=== PATIENT | male | born 1985 | race Caucasian/White ===

== ENCOUNTER 2017-05-22 16:47 | Inpatient (IN) | payer BC, OTHER ==
[~2017-05-22] VITALS: Ht 182.9 cm; Wt 103.6 kg
[2017-05-22 16:53] VITALS: Ht 182.9 cm; Wt 103.6 kg
[2017-05-22] MEDS ORDERED: BARIUM SULF 2% 450 ML BTL (BERRY SMOOTHIE) PO STA (19:26)
[2017-05-22] MEDS ORDERED: ONDANSETRON 4 MG INJ IV STA ×2 (19:26→21:06)
[2017-05-22] MEDS ORDERED: HYDROmorphONE 1 MG/ML SYG IV STA ×2 (19:26→21:06)
[2017-05-22] MEDS ORDERED: SOD CHLORIDE 0.9% 1,000 ML IV STA (19:26)
[2017-05-22 20:04] LABS: BASOPHILS % 0.2 % (0.0-2.0); EOSINOPHILS % 0.3 % (0.0-7.0); HEMATOCRIT 34.2 % (42.0-52.0); HEMOGLOBIN 12.5 g/dl (14.0-18.0); LYMPHOCYTES % 8.8 % (15.0-51.0); MEAN CORPUSCULAR HEMOGLOBIN 29.7 pg (29.0-33.0); MEAN CORPUSCULAR HGB CONC 36.5 g/dl (32.0-37.0); MEAN CORPUSCULAR VOLUME 81.2 fl (82.0-101.0); MONOCYTE # 1.1 10^3/ul (0.3-0.9); MONOCYTES % 9.5 % (0.0-11.0); NEUTROPHILS % 80.9 % (39.0-77.0); PLATELET COUNT 238 10^3/UL (140-415); RED BLOOD COUNT 4.21 10^6/ul (4.70-6.10); RED CELL DISTRIBUTION WIDTH 12.4 % (11.5-14.5); WHITE BLOOD COUNT 11.5 10^3/ul (4.8-10.8)
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
[2017-05-22 20:30] LABS: ALBUMIN 4.5 g/dl (3.3-4.9); ALBUMIN/GLOBULIN RATIO 1.25; CALCIUM 9.4 mg/dl (8.4-10.2); CREATININE 0.96 mg/dl (0.61-1.24); TOTAL PROTEIN 8.1 g/dl (6.1-8.1)
[2017-05-22] MEDS ORDERED: IBUPROFEN 800 MG TAB PO ONE (20:30)
[2017-05-22 20:37] LABS: ADD UMIC YES; UR ASCORBIC ACID NEGATIVE (NEGATIVE); UR BILIRUBIN (Dip) NEGATIVE (NEGATIVE); UR BLOOD (Dip) 1+ mg/dL (NEGATIVE); UR CLARITY CLEAR (CLEAR); UR COLOR AMBER (YELLOW); UR GLUCOSE (Dip) NEGATIVE (NEGATIVE); UR KETONES (Dip) 2+ mg/dL (NEGATIVE); UR LEUKOCYTE ESTERASE (Dip) TRACE Leu/ul (NEGATIVE); UR MUCUS FEW /HPF (NONE SEEN); UR NITRITE (Dip) NEGATIVE (NEGATIVE); UR RBC 1 /HPF (0-5); UR SPECIFIC GRAVITY (Dip) 1.019 (1.003-1.030); UR TOTAL PROTEIN (Dip) NEGATIVE (NEGATIVE); UR UROBILINOGEN (Dip) 1+ mg/dL (NEGATIVE)
[2017-05-22] MEDS ORDERED: IOHEXOL 300MG/ML 150 ML BTL ONE (21:08)
[2017-05-22] MEDS ORDERED: SOD CHLORIDE 0.9% 100 ML ONE (21:08)
[2017-05-22] MEDS ORDERED: LORAZEPAM 2 MG INJ IV ONE (21:30)
--- NOTE | 2017-05-22 22:25 | RADRPT ---
PROCEDURE: CT Abdomen and pelvis with contrast. CLINICAL INDICATION: Abdominal pain. TECHNIQUE: CT scan of the abdomen and pelvis with contrast was performed on a multi-detector high -resolution CT scanner. The patient was scanned following the uncomplicated administration of 100 c c of Omnipaque 300 intravenous contrast. Coronal and sagittal reformatted images were obtained from the axial source images. Images were reviewed on a high-resolution PACS workstation. One or more of the following dose reduction techniques were used: - Automated exposure control. - Adjustment of the mA and/or kV according to patient size. - Use of iterative reconstruction technique. Exam CTD/vol = 18.37 mGy. Total exam DLP = 1204.42 mGy-cm. COMPARISON: None. FINDINGS: Evaluation of the lung bases demonstrates scattered patchy airspace opacities within the left lung b ase. There is dilatation of the distal esophagus with mild wall thickening. Abdomen: The liver is normal in size. There is no focal mass or dilatation of the biliary tree. T he gallbladder is not distended. Multiple gallstones are identified. The spleen, pancreas and bila teral adrenal glands are within normal limits. Bilateral kidneys are normal in size with symmetric enhancement. There is no focal mass, hydronephrosis or hydroureter. There is no retroperitoneal ad enopathy. The abdominal aorta is of normal caliber. There are small midline ventral, right and left lateral abdominal wall hernias containing fat. The patient is status post gastric banding. There are an anastomotic sutures within the ascending and d escending colon. There is no bowel obstruction or free air. The appendix is absent. There is no d iverticulosis or diverticulitis. There is no ascites. Pelvis: The bladder is unremarkable. The prostate and seminal vesicles are within normal limits. There is no significant pelvic adenopathy or free fluid. Evaluation of the osseous structures demonstrates no suspicious lytic or blastic lesion. IMPRESSION: Status post gastric banding. There is dilatation of the distal esophagus with mild wall thickening. Scattered patchy airspace opacities within the left lung base. Small midline ventral, right and left lateral abdominal wall hernias containing fat. Cholelithiasis. .Jan Leger MD, Date Time Electronically viewed and signed by .Jan Leger MD, MD on 05/22/2017 22:25 .T/
--- NOTE | 2017-05-22 22:28 | RADRPT ---
PROCEDURE: Abdominal ultrasound, limited. CLINICAL INDICATION: Abdominal pain. TECHNIQUE: Multiple real-time images were acquired of the patient's right upper abdomen utilizing a high resolution transducer. COMPARISON: None FINDINGS: The liver demonstrates increased echogenicity and size measuring 21.5 cm. There is no focal mass or intrahepatic biliary ductal dilatation. The portal vein is patent. The gallbladder is not distend ed. Echogenic gallstones and sludge are identified. There is no pericholecystic fluid or gallbladd er wall thickening. The common bile duct measures 4.0 mm in maximal dimension. The pancreas is obs cured by overlying bowel gas. No free fluid is identified. The right kidney is normal size and echogenicity measuring 12.2 x 5.6 x 7.1 cm. There is no focal r enal mass or echogenic calculus identified. There is no obstructive uropathy. IMPRESSION: Cholelithiasis and gallbladder sludge without ultrasound evidence of cholecystitis. Enlarged liver with fatty infiltration. Pancreas obscured by overlying bowel gas. .Jan Leger MD, Date Time Electronically viewed and signed by .Jan Leger MD, MD on 05/22/2017 22:27 .T/
[2017-05-22] MEDS ORDERED: AZITHROMYCIN 500MG/NS (PMX) 250 ML IV STA (23:29)
[2017-05-22] MEDS ORDERED: CEFTRIAXONE 1 GM/50 ML (PMX) 50 ML IVPB STA (23:29)
[2017-05-23] MEDS ORDERED: ACETAMINOPHEN 325 MG TAB PO PRN
[2017-05-23] MEDS: SOD CHLORIDE 0.9% 1,000 ML IV SCH ×2 (00:24→08:55)
[2017-05-23 01:37] VITALS: PULSE 80; TEMP 97.9
[2017-05-23 02:33] VITALS: BP 114/63; RESP 18
[2017-05-23] MEDS ORDERED: ONDANSETRON 4 MG INJ IV PRN ×2 (03:00)
[2017-05-23] MEDS: morphine 4 MG/ML VIAL IV PRN ×2 (04:56→08:47)
[2017-05-23] MEDS ORDERED: KETOROLAC 30 MG INJ IV PRN (07:00)
[2017-05-23 07:21] VITALS: BP 119/73; RESP 20
[2017-05-23] MEDS ORDERED: LEVOFLOXACIN 500MG/D5W (PMX) 100 ML IVPB SCH (07:30)
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
[2017-05-23] MEDS ORDERED: HYDROmorphONE 1 MG/ML SYG IV STA (09:44)
--- NOTE | 2017-05-23 09:44 | PN ---
Date/Time of Note Date/Time of Note DATE: 05/23/17 TIME: 09:43 Assessment/Plan VTE Prophylaxis VTE Prophylaxis Intervention: SCD's Lines/Catheters [facility] Saline [facility] Assessment/Plan Assessment/Plan This is a 31-year-old male who presents to us with left-sided pleuritic chest pain, abdominal pain and dysphagia, clinical jaundice who was recently discharged from [facility] yesterday when he had presented for jaundice and underwent EGD colonoscopy. 1. Epigastric abdominal pain and dysphagia -Possibly related to LAP-BAND dysfunction vs cholelithiasis. will notify Dr. Jacobsen about patient's admission. Of note however patient does seem to have drug seeking behavior, specifically asking for a 2 mg Dilaudid. - Patient having pain, MRCP pending, will give 1 dose of Dilaudid, increase PPI to twice daily. -Is also requesting for diet, if he does not need to be n.p.o. for MRCP, will start clear liquid diet. 2. Sepsis, as evidenced by fever and tachypnea: Likely secondary to left lower lung pneumonia VS less likely ileitis given colonoscopy findings from 2 days ago -IV antibiotic, IV hydration, supportive care -Follow-up culture results 3. Jaundice with hyperbilirubinemia -Direct hyperbilirubinemia noted / follow-up MRCP findings to rule out choledocholithiasis / GI consult with Dr. Saldana /trend bilirubin levels. 4. Hypokalemia -Replete 5. Remote hx of Lap band placement Further interventions per clinical course. Subjective 24 Hr Interval Summary Free Text/Dictation c/o of L sided pleuritic chest pain as well as lower abd pain, want to know treatment plan Wants 2 mg of dilaudid every 3 hrs , refuses oral meds, wants only IV Exam/Review of Systems Vital Signs Vitals Vital Signs Date Time Temp Pulse Resp B/P Pulse Ox O2 Delivery O2 Flow Rate FiO2 05/23/17 07:21 98.9 79 20 119/73 96 05/23/17 01:37 Room Air Intake and Output 05/22/17 05/22/17 05/23/17 15:00 23:00 07:00 Intake Total 200 ml Balance 200 ml Exam Constitutional: alert, oriented, anxious Head: atraumatic, normocephalic Neck: non-tender, supple Respiratory: clear to auscultation Cardiovascular: regular rate and rhythm Gastrointestinal: S/ NT / ND / +BS Extremities: no edema, good radial pulses Results Result Diagram: 05/22/17 1950 05/22/171949 Results 24 hrs Laboratory Tests Test 05/22/17 19:50 White Blood Count 11.5 H Red Blood Count 4.21 L Hemoglobin 12.5 L Hematocrit 34.2 L Mean Corpuscular Volume 81.2 L Mean Corpuscular Hemoglobin 29.7 Mean Corpuscular Hemoglobin Concent 36.5 Red Cell Distribution Width 12.4 Platelet Count 238 Mean Platelet Volume 9.0 Neutrophils % 80.9 H Lymphocytes % 8.8 L Monocytes % 9.5 Eosinophils % 0.3 Basophils % 0.2 Nucleated Red Blood Cells % 0.0 Neutrophils # (Manual) 9.3 H Lymphocytes # 1.0 Monocytes # 1.1 H Eosinophils # 0.0 Basophils # 0.0 Nucleated Red Blood Cells # 0.0 Urine Color ANDREW Urine Clarity CLEAR Urine pH 5.0 Urine Specific [place] 1.019 Urine Ketones 2+ H Urine Nitrite NEGATIVE Urine Bilirubin NEGATIVE Urine Urobilinogen 1+ H Urine Leukocyte Esterase TRACE A Urine Microscopic RBC 1 Urine Microscopic WBC 2 Urine Mucus FEW A Urine Hemoglobin 1+ H Urine Glucose NEGATIVE Urine Total Protein NEGATIVE Sodium Level 140 Potassium Level 3.0 L Chloride Level 97 Carbon Dioxide Level 30 Anion Gap 16 Blood Urea Nitrogen 4 L Creatinine 0.96 Glucose Level 95 Calcium Level 9.4 Total Bilirubin 8.0 H Direct Bilirubin 0.00 Indirect Bilirubin 8.0 H Aspartate Amino Transf (AST/SGOT) 25 Alanine Aminotransferase (ALT/SGPT) 45 Alkaline Phosphatase 76 Total Protein 8.1 Albumin 4.5 Globulin 3.60 H Albumin/Globulin Ratio 1.25 Lipase 45 Medications Medications Current Medications Sodium Chloride (NS) 1,000 ml @ 80 mls/hr [id number] IV Last administered on 08:55; Admin Dose 80 MLS/HR; Start 05/22/17 at 23:41; Stop 05/23/17 at 12:10 Morphine Sulfate (morphine) 4 mg Q4H PRN IV PAIN Last administered on 05/23/17 08:47; Admin Dose 4 MG; Start 05/23/17 at 03:00 Ondansetron HCl (Zofran Inj) 4 mg Q6H PRN IV NAUSEA AND/OR VOMITING; Start 05/23 at 03:00 Ketorolac Tromethamine 30 mg 30 mg Q6H PRN IV PAIN; Start 05/23/17 at 07:00; Stop 05/26/17 at 06:59 Levofloxacin/ Dextrose (Levaquin 500mg/ D5W 100 ml (Pmx)) 100 ml @ 100 mls/hr Q24H IVPB Last administered on 05/23/17t 08:59; Admin Dose 100 MLS/HR; Start 05/23/17 at 07:30 Pantoprazole (Protonix Iv) 40 mg DAILY@06 IV ; Start 05/24/17 at 06:00 SREEDHAR DSOUZA May 23, 2017 09:44
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
[2017-05-23] MEDS ORDERED: POTASSIUM CHLORIDE 250 ML IVPB SCH (11:00)
[2017-05-23] MEDS ORDERED: FAMOTIDINE 20 MG INJ IV SCH (11:00)
[2017-05-23 11:06] LABS: ALBUMIN 3.9 g/dl (3.3-4.9); ALBUMIN/GLOBULIN RATIO 1.3; BILIRUBIN,INDIRECT 6.6 mg/dl (0-1.1); BILIRUBIN,TOTAL 6.6 mg/dl (0.2-1.3); CALCIUM 8.9 mg/dl (8.4-10.2); CREATININE 0.74 mg/dl (0.61-1.24); POTASSIUM 3.1 mmol/L (3.5-5.1); TOTAL PROTEIN 6.9 g/dl (6.1-8.1)
[2017-05-23 11:11] LABS: BASOPHILS % 0.3 % (0.0-2.0); EOSINOPHILS # 0.2 10^3/ul (0.0-0.5); EOSINOPHILS % 2.5 % (0.0-7.0); HEMATOCRIT 31.5 % (42.0-52.0); HEMOGLOBIN 11.8 g/dl (14.0-18.0); LYMPHOCYTES # 0.7 10^3/ul (0.8-2.9); LYMPHOCYTES % 8.1 % (15.0-51.0); MEAN CORPUSCULAR HEMOGLOBIN 30.6 pg (29.0-33.0); MEAN CORPUSCULAR HGB CONC 37.5 g/dl (32.0-37.0); MEAN CORPUSCULAR VOLUME 81.6 fl (82.0-101.0); MEAN PLATELET VOLUME 9.7 fl (7.4-10.4); NEUTROPHILS % 77.7 % (39.0-77.0); PLATELET COUNT 216 10^3/UL (140-415); RED BLOOD COUNT 3.86 10^6/ul (4.70-6.10); RED CELL DISTRIBUTION WIDTH 12.1 % (11.5-14.5); WHITE BLOOD COUNT 9.2 10^3/ul (4.8-10.8)
--- NOTE | 2017-05-23 17:13 | QN ---
Documentation Comment DISCHARGE SUMMARY: Patient eloped and returned to ER to be readmitted. SREEDHAR DSOUZA. May 23, 2017 17:13
--- NOTE | 2017-05-23 17:24 | HP ---
Date/Time of Note Date/Time of Note DATE: 05/23/17 TIME: 17:14 Assessment/Plan VTE Prophylaxis VTE Prophylaxis Intervention: SCD's Lines/Catheters IV Catheter Type (from Nrs): Peripheral IV Assessment/Plan Assessment/Plan This is a 31-year-old male who presents to us with left-sided pleuritic chest pain, abdominal pain and dysphagia, clinical jaundice who was recently discharged from [facility] yesterday when he had presented for jaundice and underwent EGD colonoscopy. 1. Epigastric abdominal pain and dysphagia -Possibly related to LAP-BAND dysfunction -Dr Jacobsen planning bedside intervention -Patient is exhibiting med seeking behaviour. Pain mgt consult obtained 2. s/p Sepsis, as evidenced by fever and tachypnea: Likely secondary to left lower lung pneumonia VS less likely ileitis given colonoscopy findings from 2 days ago - Continue IV antibiotic, IV hydration, supportive care -Follow-up culture results 3. Jaundice with hyperbilirubinemia -Direct hyperbilirubinemia noted / f/u hepatitis profile / seen by GI earlier, no need for MRCP /trend bilirubin levels. 4. Hypokalemia -Replete 5. Remote hx of Lap band placement Further interventions per clinical course. HPI/ROS Admit Date/Time Admit Date/Time May 22, 2017 at 23:42 Hx of Present Illness Patient is a 31-year-old male who had a previous lap band surgery who was admitted for intractable abd pain / nausea / vomiting and jaundice and was awaiting surgical review. He left the hospital without notifying the staff and was thought to have eloped. he however states he went down with a friend, but since he had been discharged in the computer, he has to be readmmitted because he remains symptomatic. He is complaining of abdominal pain and vomiting and did vomit in the emergency department. He continues to ask for dilaudid by name for pain and refuse all oral meds, concerning for drug seeking behaviour. No further fever. ROS 12 point review if systems was done and pertinent findings are as noted. Psychological: nl mood/affect, no complaints PMH/Family/Social Past Medical History Medical History: colitis, GERD Past Surgical History Past Surgical Hx: bowel resection, endoscopy, other (lap band) Social History Alcohol Use: occasionally Smoking Status: Never smoker Drug Use: none Exam/Review of Systems Vital Signs Vitals Vital Signs Date Time Temp Pulse Resp B/P Pulse Ox O2 Delivery O2 Flow Rate FiO2 05/23/17 07:21 98.9 79 20 119/73 96 05/23/17 01:37 Room Air Intake and Output 05/22/17 05/22/17 05/23/17 15:00 23:00 07:00 Intake Total 200 ml Balance 200 ml Exam Exam Constitutional: alert and oriented Head: atraumatic, normocephalic Eyes: EOMI, PERRL, icteric Respiratory: clear to auscultation, normal air movement Cardiovascular: nl pulses, regular rate and rhythm Gastrointestinal: soft, tender Extremities: normal pulses Labs Result Diagram: 05/23/17 0927 05/23/17 0927 SREEDHAR DSOUZA May 23, 2017 17:24
[2017-05-24] MEDS ORDERED: PANTOPRAZOLE 40 MG INJ IV SCH (06:00)
[2017-05-25] MEDS ORDERED: LIDOCAINE 2% (SDV) 5 ML INJ ONE (17:33)
[2017-05-25] MEDS ORDERED: PROPOFOL 20 ML ONE (17:33)
== END 2017-05-23 13:00 | disposition left against medical advice (07) | DRG 871 ==
LOC: E/R 16:47 → MS2 23:42
PROVIDERS: ADMIT Internal Medicine; ATTEND Internal Medicine
DX: A41.9 Sepsis, unspecified organism (principal); J18.9 Pneumonia, unspecified organism; R17 Unspecified jaundice; R13.10 Dysphagia, unspecified; Z90.49 Acquired absence of other specified parts of digestive tract; R10.13 Epigastric pain; E87.6 Hypokalemia; Z98.84 Bariatric surgery status
CPT/HCPCS: 36415; 74177; 76705; 80053; 81001; 83690; 85025; 86803; 87040; 87081; 87340; 96374; 96375; 96376; J0456; J0696; J1170; J1956; J2060; J2270; J2405; J3480; J7030; Q9967

== ENCOUNTER 2017-05-23 13:39 | Inpatient (IN) | payer BC ==
[~2017-05-23] VITALS: Ht 177.8 cm; Wt 100.0 kg
[2017-05-23] MEDS ORDERED: ONDANSETRON 4 MG INJ IV STA (13:47)
[2017-05-23] MEDS ORDERED: ONDANSETRON 4 MG INJ IV PRN (14:00)
[2017-05-23] MEDS ORDERED: ACETAMINOPHEN 325 MG TAB PO PRN (14:00)
--- NOTE | 2017-05-23 14:00 | ERA ---
ER Documentation Chief Complaint Date/Time DATE: 05/23/17 TIME: 13:57 Chief Complaint Vomiting HPI Patient is a 31-year-old male who had a previous lap band surgery who presents with vomiting. He was actually previously admitted to the hospital and went downstairs with a friend and the nurses upstairs thought he had left. He was admitted because of pneumonia and elevated bilirubin. The nursing hydrochloric area supervisor found him downstairs and brought him to the ER for reevaluation and potential admission. He is complaining of abdominal pain and vomiting and did vomit in front of me in the emergency department. ROS All systems reviewed and are negative except as per history of present illness. Allergies Allergies: Coded Allergies: metoclopramide (Verified Allergy, Unknown, EPS, 05/22/17) PMhx/Soc History of Surgery: Yes (LAPBAND 2010, PARTIAL COLECTOMY, COLOSTOMY) Anesthesia Reaction: No Hx Neurological Disorder: No Hx Respiratory Disorders: No Hx Cardiac Disorders: No Hx Psychiatric Problems: No Hx Miscellaneous Medical Probl: No Hx Alcohol Use: No Hx Substance Use: No Hx Tobacco Use: No FmHx Family History: No diabetes Physical Exam Physical Exam Const: Moderate distress secondary to vomiting Head: Atraumatic Eyes: Scleral icterus ENT: Normal External Ears, Nose and Mouth. Neck: Full range of motion..~ No meningismus. Resp: Clear to auscultation bilaterally Cardio: Regular rate and rhythm, no murmurs Abd: Soft, Upper abdominal pain without rebound or guarding Skin: Jaundice and diaphoresis Back: No midline or flank tenderness Ext: No cyanosis, or edema Neur: Awake and alert Psych: Normal Mood and Affect Results 24 hrs Current Medications Medications (Trade) Dose Ordered Sig/[place] PRN Reason Start Time Stop Time Status Last Admin Dose Admin Ondansetron HCl (Zofran Inj) 4 mg BRIDGE ORDER PRN IV NAUSEA AND/OR VOMITING 05/23/17 14:00 05/24/17 13:59 Acetaminophen (Tylenol Tab) 650 mg ER BRIDGE PRN PO MILD PAIN/FEVER 05/23/17 14:00 05/24/17 13:59 Ondansetron HCl (Zofran Inj) 4 mg ONCE STAT IV 05/23/17 13:47 05/23/17 13:48 DC Procedures/MDM Patient is a 31-year-old male who presents with pneumonia and hyperbilirubinemia. He will be given Zofran in the emergency department but will be readmitted to Dr. Peoples from the panel team. He never should have been taken out of the computer the nurse upstairs thought that he was leaving AGAINST MEDICAL ADVICE although the patient says that he did not want to leave and still wants to be treated. The patient is complaining of abdominal pain and vomiting and he did vomit in front of me in the emergency department. The patient will be readmitted to a medical surgical bed. Departure Diagnosis: Primary Impression: Left lower lobe pneumonia Qualified Code: J18.1 - Pneumonia of left lower lobe due to infectious organism Additional Impression: Hyperbilirubinemia Condition: EMERSON López MD May 23, 2017 14:00
[2017-05-23 14:30] VITALS: Ht 177.8 cm; Wt 100.0 kg
[2017-05-23] MEDS: morphine 2 MG INJ IV PRN ×2 (16:32→20:25)
[2017-05-23] MEDS: DEXTROSE 5%-0.45% NACL 1,000 ML IV SCH ×2 (16:34→23:10)
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
--- NOTE | 2017-05-23 17:44 | OPR ---
Date/Time of Note Date/Time of Note DATE: 05/23/17 TIME: 17:40 Operative Report Procedure Date: May 23, 2017 Preoperative Diagnosis Tight lap band causing esophageal dilation, dysphagia Postoperative Diagnosis Same Operation Performed Lap band adjustment and emptying Surgeon: GUILHERME NGUYEN MD Estimated Blood Loss: none Transfusion Required: no Specimen: none Grafts/Implants: none Tubes/Drains None Complications: no Pt Condition Post Procedure: stable Disposition: other (Own room) Indications Per consult. R/B/A as usual and customary reviewed with patient and he agrees to proceed. Patient however does not want me to remove as much fluid as I am recommending but I advised him the safest option is to empty as much as possible. Procedure Description Patient was placed supine on his own bed. Area prepped and draped sterilly. Time out done. Port was palpated and wilcox needle directly placed into the port. The fluid was suctioned out to the band limits. Needle was removed and band aid applied. Patient tolerated procedure well. GUILHERME NGUYEN MD May 23, 2017 17:43
[2017-05-23] MEDS ORDERED: morphine 2 MG INJ IV ONE (18:30)
[2017-05-23 19:17] VITALS: BP 122/59; RESP 18
[2017-05-23] MEDS: HYDROmorphONE 1 MG/ML SYG IV PRN (22:23)
[2017-05-23] MEDS ORDERED: traMADol 50 MG TAB PO PRN ×2 (22:30)
[2017-05-24] MEDS: morphine 2 MG INJ IV PRN ×3 (00:19→12:25)
[2017-05-24] MEDS: HYDROmorphONE 1 MG/ML SYG IV PRN ×2 (03:58→23:28)
[2017-05-24] MEDS: DEXTROSE 5%-0.45% NACL 1,000 ML IV SCH ×3 (05:50→22:16)
[2017-05-24 08:01] VITALS: BP 121/67; RESP 18
--- NOTE | 2017-05-24 12:01 | PN ---
Date/Time of Note Date/Time of Note DATE: 05/24/17 TIME: 11:59 Assessment/Plan Lines/Catheters IV Catheter Type (from Nrs): Peripheral IV Assessment/Plan Chief Complaint/Hosp Course 1. Abdominal pain multifactorial with obstructing lap band, ileitis, ? colitis/ spastic colon. -gi w/u and tx (2nd diarrhea, gilberts, hyperbilirubinemia/icterus) -stool studies -empty band -antacids -fluids -?mrcp 2. Hyperbilirubinemia, ?[place] -as above 3. Ileitis, spastic colon/?colitis -as above 4. ? Aspiration pneumonia -pulmonary toilette -abx -oob/ambulate/IS 5. Possible sepsis 2nd above -as above -supportive Thank you very much for consulting me in this patient's care, Problems: Subjective 24 Hr Interval Summary Lap band emptied. Pain slowly improving. No f/c. No n/v. No cp/sob. No cough. No frey/dizzy/visual or neuro changes. No dysuria. GI re-eval pending. Exam/Review of Systems Vital Signs Vitals Vital Signs Date Time Temp Pulse Resp B/P Pulse Ox O2 Delivery O2 Flow Rate FiO2 05/24/17 08:01 64 18 121/67 98 05/23/17 19:17 99.1 Intake and Output 05/23/17 05/23/17 05/24/17 15:00 23:00 07:00 Intake Total 100 ml 1600 ml Output Total 600 ml Balance 100 ml 1000 ml Exam Free Text/Dictation Constitutional: alert, oriented, other (Anxious), No distress Psych: anxiety, No confusion Head: atraumatic, normocephalic, No hematomas Eyes: EOMI, PERRL, icteric, No nl conjunctiva (Icterus) ENMT: nl external ears & nose, nl lips & teeth Neck: non-tender, supple, No jvd Respiratory: normal air movement, No congested cough Cardiovascular: nl pulses, No edema Gastrointestinal: soft, tender (min), No distended, No rebound or guarding Genitourinary - Male: nl penis, nl scrotum Musculoskeletal: nl extremities to inspection, nl gait and stance, No joint tenderness Extremities: normal pulses, No calf tenderness, No cyanosis Neurological: nl mental status, nl speech, nl strength, No confused Skin: nl turgor, No diaphoresis, No rash or lesions Lymph: nl lymph nodes GUILHERME NGUYEN MD May 24, 2017 12:01
[2017-05-24] MEDS ORDERED: morphine 10 MG INJ IM ONE (14:00)
[2017-05-24] MEDS ORDERED: HYDROmorphONE 2 MG/ML SYG IV STA (14:05)
[2017-05-24] MEDS ORDERED: BARIUM SULF 2% 450 ML BTL (BERRY SMOOTHIE) PO ONE (14:30)
[2017-05-24] MEDS ORDERED: HYDROmorphONE 1 MG/ML SYG IV PRN (14:30)
[2017-05-24 14:50] VITALS: BP 113/68; RESP 18
[2017-05-24] MEDS: LEVOFLOXACIN 750MG/D5W (PMX) 150 ML IVPB SCH (15:19)
[2017-05-24] MEDS ORDERED: SOD CHLORIDE 0.9% 100 ML ONE (16:31)
[2017-05-24] MEDS ORDERED: IOHEXOL 300MG/ML 150 ML BTL ONE (16:31)
[2017-05-24 17:41] LABS: BASOPHILS % 0.4 % (0.0-2.0); EOSINOPHILS # 0.3 10^3/ul (0.0-0.5); EOSINOPHILS % 4.5 % (0.0-7.0); HEMATOCRIT 33.3 % (42.0-52.0); HEMOGLOBIN 11.9 g/dl (14.0-18.0); LYMPHOCYTES # 1.6 10^3/ul (0.8-2.9); LYMPHOCYTES % 23.1 % (15.0-51.0); MEAN CORPUSCULAR HEMOGLOBIN 28.7 pg (29.0-33.0); MEAN CORPUSCULAR HGB CONC 35.7 g/dl (32.0-37.0); MEAN CORPUSCULAR VOLUME 80.2 fl (82.0-101.0); MEAN PLATELET VOLUME 9.4 fl (7.4-10.4); MONOCYTE # 0.9 10^3/ul (0.3-0.9); MONOCYTES % 12.9 % (0.0-11.0); NEUTROPHILS % 58.7 % (39.0-77.0); PLATELET COUNT 289 10^3/UL (140-415); RED BLOOD COUNT 4.15 10^6/ul (4.70-6.10); RED CELL DISTRIBUTION WIDTH 12.2 % (11.5-14.5); WHITE BLOOD COUNT 7.1 10^3/ul (4.8-10.8)
--- NOTE | 2017-05-24 17:45 | RADRPT ---
PROCEDURE: CT ABDOMEN AND PELVIS WITH CONTRAST: CLINICAL INDICATION: 31 years of age, male, acute abdominal pain and distension. COMPARISON: CT May 22, 2017 TECHNIQUE: CT of the abdomen and pelvis was performed following administration of 100 mL IV Omnipaq ue-300. Oral contrast was not administered prior to the examination. Coronal and sagittal reformatted images were obtained from the axial source images. Images were revi ewed on a high-resolution PACS workstation. Dose information: Based on a 32 cm phantom, the estimated radiation dose (CTDIvol mGy for each serie s in this exam is 19.8. The estimated cumulative dose (DLP mGy-cm) is 1323. One or more of the following dose reduction techniques were used: - Automated exposure control. - Adjustment of the mA and/or kV according to patient size. - Use of iterative reconstruction technique. FINDINGS: LUNG BASES: There is multi focal consolidation in the left lung lingula and left lower lobe that is improved from prior exam. Trace left pleural effusion is similar to prior exam. ABDOMEN/PELVIS: Liver: Normal. Portal veins, splenic vein and SMV are patent. Hepatic veins are patent. Gallbladder: Cholelithiasis without evidence of acute cholecystitis. Bile ducts: No intrahepatic or extrahepatic biliary duct dilatation. Spleen: Mild splenomegaly measuring 13.3 cm. Pancreas: Normal. Adrenal glands: Normal. Kidneys and ureters: Normal. Aorta and IVC: Patent. Lymph nodes: Normal. Gastrointestinal tract: There is a laparoscopoic adjustable gastric band at the gastric cardia. Phi angle of the band is normal and measures 43 degrees. Negative for evidence of slippage or gastric er osion. There is upstream dilatation of the esophagus with oral contrast concerning for stomal steno sis. It is possible that the band has been deflated since the prior exam. There is wall thickening o f the distal esophagus that may be due to esophagitis. Negative for evidence of perforation. The sto mach is moderately distended with contrast and debris from a recent meal. The tubing is redundant an d extends inferior to the right lobe of the liver are and is connected to a pop in the anterior ches t wall overlying the xiphoid. Small bowel loops and colon are decompressed. There is N I ileocolic a nastomosis in the right lower quadrant. There is an enough stenosis in the distal descending colon f rom segmental resection. Appendix: Absent Bladder: Normal. Pelvic Organs: Prostate gland and seminal vesicles are unremarkable. Peritoneal cavity: No free fluid or free intraperitoneal air. Abdominal wall: There is complete absence or atrophy of the left rectus abdominus and transversalis and oblique musculature in the mid and lower abdomen extending to the left iliac crest. There is abd ominal wall laxity. There is either an intact lax deep fascial layer or an abdominal wall hernia con taining bowel lined by peritoneum in this location. In the superior abdomen there is diastasis of th e rectus abdominus. A similar defect in the deep abdominal wall musculature is observed at the attac hment to the right iliac crest with either laxity or a focal hernia (3/123) BONES: Musculoskeletal: There is heterotopic ossification at the left iliac crest likely from remote trauma . Mild degenerative changes in spine. No suspicious bone lesions. IMPRESSION: Status post placement of laparoscopic adjustable gastric band with a normal Phi angle without eviden ce of slippage. There is concern for stromal stenosis with mechanical obstruction at the site of the band with upstream dilatation of the esophagus and delayed esophageal emptying. Recommend GI consul tation for deflation of the band. It is possible that the band has been deflated in the interval sin ce the prior exam but there is continued obstruction. Recommend correlation with the medical record. Wall thickening of the distal esophagus is concerning for esophagitis. There is also wall thickening of the gastric cardia at the site of the band without CT evidence of gastric band erosion. The cam[place] ent will likely benefit from endoscopy. The patient may also benefit from an upper GI study to bartolo r evaluate for gastric band erosion. Multi focal consolidation in the left lung is improved from prior exam and may be due to infection o r aspiration. Trace left pleural effusion is similar . Deficiency of the abdominal wall musculature in the left mid and lower abdomen with concern for an a bdominal wall hernia that may be post traumatic. There is heterotopic ossification over the left il iac crest suggesting remote trauma. A similar defect in the deep abdominal wall musculature is obser sil at the attachment to the right iliac crest with concern for a fat-containing hernia in this loca tion. Cholelithiasis without evidence of acute cholecystitis. Findings were discussed with Fanny Hawkins RN by Dr. Stephanie Bello on May 24, 2017 at 05:40 p.m.. RPTAT: HCTS Lina Bello, Physician Date Time Electronically viewed and signed by Lian Bello, Physician on 05/24/2017 17:44 CS/
[2017-05-24 17:58] LABS: CALCIUM 9.2 mg/dl (8.4-10.2); CREATININE 0.65 mg/dl (0.61-1.24); POTASSIUM 3.7 mmol/L (3.5-5.1)
--- NOTE | 2017-05-24 18:19 | PN ---
Date/Time of Note Date/Time of Note DATE: 05/24/17 TIME: 18:07 Assessment/Plan VTE Prophylaxis VTE Prophylaxis Intervention: SCD's Lines/Catheters IV Catheter Type (from Nrsg): Peripheral IV Assessment/Plan Assessment/Plan Impression: 1. Epigastric abdominal pain and dysphagia with possible esophageal dilation: likely related to his lap band/post deflation 2. Sepsis/cornea 3. Indirect hyperbilirubinemia Rule out hemolysis Bilirubin to high for Gilbert's syndrome No evidence of intrinsic liver disease or obstruction 4. Remote hx of Lap band placement: currently managed by Dr. Jacobsen 5. Opiate seeking behavior Recommendations: * Continue to try to obtain records from [facility] If unsuccessful proceed with EGD tomorrow. Patient informed risks, benefits and alternatives. Agreeable to proceed Keep n.p.o. to avoid large amounts of fluid and stomach due to potential obstruction * Hematology consultation to address possibility of hemolytic disorder leading to indirect hyperbilirubinemia Subjective: Course reviewed with nursing staff Patient interviewed and examined All labs, imaging and other results reviewed The patient reports persistent abdominal pain He request opiates for management He however appears very comfortable and able to move swiftly which makes me wonder if he really has pain Given the fact patient sign out AMA yesterday and returned his records from [facility] have not been obtained I have asked the nurses to try to obtain them by tomorrow and if not available we will plan EGD late tomorrow afternoon Patient will be kept n.p.o. to avoid the possibility of retained material in the stomach which will create a risk of aspiration Exam: General: well developed, well nourished, pes, alert and oriented x3 , in no acute distress Skin: No lesions, no stigmata chronic liver disease, no evidence of bleeding diathesis Lymphatic: No palpable lymphadenopathy HEENT: No lesions Cardiovascular: Heart: Regular rate and rhhthm, no murmurs, gallops or rubs. Peripheral pulses present within normal limits, no cyanosis, clubbing or edemas. No pulsatile abdominal mass Respiratory: Lungs clear to auscultation and percussion, no wheezing, no rubs Gastrointestinal and Liver: Abdomen: Soft, minimal diffusely tender, non- distended, weak abdominal wall with significant deformity, no masses, no organomegaly, no ascites, no guarding, no rebound tenderness, normoactive bowel sounds. Extremities: No cyanosis, clubbing, or edema. Diagnostic Studies: Available data and images were reviewed personally. See reports. Significant results and findings are addressed here or in the assessment and plan. Exam/Review of Systems Vital Signs Vitals Vital Signs Date Time Temp Pulse Resp B/P Pulse Ox O2 Delivery O2 Flow Rate FiO2 05/24/17 14:50 98.2 75 18 113/68 97 Intake and Output 05/23/17 05/23/17 05/24/17 15:00 23:00 07:00 Intake Total 100 ml 1600 ml Output Total 600 ml Balance 100 ml 1000 ml Results Result Diagram: 05/24/17 1724 Results 24 hrs Laboratory Tests Test 05/24/17 17:24 White Blood Count 7.1 # Red Blood Count 4.15 L Hemoglobin 11.9 L Hematocrit 33.3 L Mean Corpuscular Volume 80.2 L Mean Corpuscular Hemoglobin 28.7 L Mean Corpuscular Hemoglobin Concent 35.7 Red Cell Distribution Width 12.2 Platelet Count 289 # Mean Platelet Volume 9.4 Neutrophils % 58.7 Lymphocytes % 23.1 Monocytes % 12.9 H Eosinophils % 4.5 Basophils % 0.4 Nucleated Red Blood Cells % 0.0 Neutrophils # (Manual) 4.2 Lymphocytes # 1.6 Monocytes # 0.9 Eosinophils # 0.3 Basophils # 0.0 Nucleated Red Blood Cells # 0.0 Medications Medications Current Medications Dextrose/Sodium Chloride 1,000 ml @ 100 mls/hr Q10H IV Last administered on 12:25; Admin Dose 150 MLS/HR; Start 05/23/17 at 16:30 Levofloxacin/ Dextrose (Levaquin 750 Mg/ D5W 150 ml (Pmx)) 150 ml @ 100 mls/hr Q24H IVPB Last administered on 05/24/17 15:19; Admin Dose 100 MLS/HR; Start 05/24/17 at 15:00 Hydromorphone HCl (Dilaudid) 0.5 mg Q6H PRN IV PAIN; Start 05/24/17 at 14:30 AFRICA PETERSON MD May 24, 2017 18:18
[2017-05-24 20:14] VITALS: BP 120/74; RESP 18
[2017-05-24] MEDS ORDERED: HYDROmorphONE 1 MG/ML SYG IV ONE (21:24)
[2017-05-24] MEDS: FAMOTIDINE 20 MG INJ IV SCH (21:37)
--- NOTE | 2017-05-24 22:52 | PN ---
Date/Time of Note Date/Time of Note DATE: 05/24/17 TIME: 22:49 Assessment/Plan VTE Prophylaxis VTE Prophylaxis Intervention: ambulation Lines/Catheters IV Catheter Type (from Nrsg): Saline Lock Assessment/Plan Assessment/Plan 1. Epigastric abdominal pain and dysphagia with possible esophageal dilation: likely related to his lap band/post deflation 2. L sided pneumonia with Pleuritic CP 3. Indirect hyperbilirubinemia Rule out hemolysis Bilirubin to high for Gilbert's syndrome No evidence of intrinsic liver disease or obstruction 4. Remote hx of Lap band placement: currently managed by Dr. Jacobsen 5. Opiate seeking behavior 6. Acute abd distention 7. Severe anxiety d/o, refuses all meds except dilaudid PLAN: Discussed concerning L sided abd distention with surgery, Will order CT abd/ pelvis with IV and PO contrast NPO for now, till CT review F/u GI plan re: Hyperbilirubinemia Pain mgt and supportive care Subjective 24 Hr Interval Summary Free Text/Dictation patient c/o Large abd protrusion on L side only associated with severe pain Had Lap band drained yesterday at bedside Still with L sided pleuritic CP Exam/Review of Systems Vital Signs Vitals Vital Signs Date Time Temp Pulse Resp B/P Pulse Ox O2 Delivery O2 Flow Rate FiO2 05/24/17 20:14 98.2 72 18 120/74 99 Intake and Output 05/23/17 05/23/17 05/24/17 15:00 23:00 07:00 Intake Total 100 ml 1600 ml Output Total 600 ml Balance 100 ml 1000 ml Exam Constitutional: alert, distress, oriented Psych: anxiety Head: normocephalic Eyes: PERRL ENMT: mucosa pink and moist Neck: supple Respiratory: clear to auscultation Gastrointestinal: distended (L sided of his abd looks significanly distended as compared to the R, not rigid or overtly tender however, +BS), soft Results Result Diagram: 05/24/17 1724 05/24/17 1724 Results 24 hrs Laboratory Tests Test 05/24/17 17:24 White Blood Count 7.1 # Red Blood Count 4.15 L Hemoglobin 11.9 L Hematocrit 33.3 L Mean Corpuscular Volume 80.2 L Mean Corpuscular Hemoglobin 28.7 L Mean Corpuscular Hemoglobin Concent 35.7 Red Cell Distribution Width 12.2 Platelet Count 289 # Mean Platelet Volume 9.4 Neutrophils % 58.7 Lymphocytes % 23.1 Monocytes % 12.9 H Eosinophils % 4.5 Basophils % 0.4 Nucleated Red Blood Cells % 0.0 Neutrophils # (Manual) 4.2 Lymphocytes # 1.6 Monocytes # 0.9 Eosinophils # 0.3 Basophils # 0.0 Nucleated Red Blood Cells # 0.0 Sodium Level 140 Potassium Level 3.7 Chloride Level 100 Carbon Dioxide Level 29 Anion Gap 15 Blood Urea Nitrogen 2 L Creatinine 0.65 Glucose Level 100 Calcium Level 9.2 Magnesium Level 1.9 Medications Medications Current Medications Dextrose/Sodium Chloride 1,000 ml @ 100 mls/hr Q10H IV Last administered on 22:16; Admin Dose 100 MLS/HR; Start 05/23/17 at 16:30 Levofloxacin/ Dextrose (Levaquin 750 Mg/ D5W 150 ml (Pmx)) 150 ml @ 100 mls/hr Q24H IVPB Last administered on 05/24/17 15:19; Admin Dose 100 MLS/HR; Start 05/24/17 at 15:00 Hydromorphone HCl (Dilaudid) 0.5 mg Q6H PRN IV PAIN Last administered on 19:06; Admin Dose 0.5 MG; Start 05/24/17 at 14:30 Famotidine (Pepcid Iv) 20 mg BID IV Last administered on 05/24/17 21:37; Admin Dose 20 MG; Start 05/24/17 at 22:00 Simethicone (Mylicon) 80 mg Q6H PRN PO DISTENSION/GAS/BLOATING Last administered on 05/24/17 22:23; Admin Dose 80 MG; Start 05/24/17 at 21:30 SREEDHAR DSOUZA May 24, 2017 22:52
[2017-05-25 02:23] VITALS: BP 113/71; RESP 18
[2017-05-25] MEDS: HYDROmorphONE 1 MG/ML SYG IV PRN ×5 (05:27→22:32)
[2017-05-25 05:50] LABS: BASOPHILS % 0.4 % (0.0-2.0); EOSINOPHILS # 0.4 10^3/ul (0.0-0.5); EOSINOPHILS % 4.4 % (0.0-7.0); HEMATOCRIT 33.6 % (42.0-52.0); HEMOGLOBIN 12.3 g/dl (14.0-18.0); LYMPHOCYTES # 1.2 10^3/ul (0.8-2.9); LYMPHOCYTES % 14.4 % (15.0-51.0); MEAN CORPUSCULAR HEMOGLOBIN 29.6 pg (29.0-33.0); MEAN CORPUSCULAR HGB CONC 36.6 g/dl (32.0-37.0); MEAN CORPUSCULAR VOLUME 80.8 fl (82.0-101.0); MEAN PLATELET VOLUME 9.3 fl (7.4-10.4); MONOCYTES % 12.1 % (0.0-11.0); NEUTROPHILS % 68.2 % (39.0-77.0); PLATELET COUNT 286 10^3/UL (140-415); RED BLOOD COUNT 4.16 10^6/ul (4.70-6.10); RED CELL DISTRIBUTION WIDTH 11.9 % (11.5-14.5); WHITE BLOOD COUNT 8.4 10^3/ul (4.8-10.8)
[2017-05-25 06:27] LABS: ALBUMIN 3.8 g/dl (3.3-4.9); BILIRUBIN,INDIRECT 3.2 mg/dl (0-1.1); BILIRUBIN,TOTAL 3.2 mg/dl (0.2-1.3); TOTAL PROTEIN 6.7 g/dl (6.1-8.1)
[2017-05-25 06:33] LABS: ALANINE AMINOTRANSFERASE 28 IU/L (13-69); ALBUMIN/GLOBULIN RATIO 1.14; ALKALINE PHOSPHATASE 69 IU/L (42-121); ANION GAP 14 (8-16); ASPARTATE AMINO TRANSFERASE 17 IU/L (15-46); BILIRUBIN,INDIRECT 3.2 mg/dl (0-1.1); BILIRUBIN,TOTAL 3.2 mg/dl (0.2-1.3); CALCIUM 9.3 mg/dl (8.4-10.2); CARBON DIOXIDE 30 mmol/L (21-31); CHLORIDE 100 mmol/L (97-110); CREATININE 0.72 mg/dl (0.61-1.24); GLUCOSE 100 mg/dl (70-220); POTASSIUM 3.4 mmol/L (3.5-5.1); SODIUM 141 mmol/L (135-144); TOTAL PROTEIN 7.5 g/dl (6.1-8.1)
[2017-05-25 06:46] LABS: BLOOD UREA NITROGEN < 2 mg/dl (7-20)
[2017-05-25 07:49] VITALS: BP 120/77; RESP 19
[2017-05-25] MEDS: FAMOTIDINE 20 MG INJ IV SCH (08:28)
[2017-05-25] MEDS: DEXTROSE 5%-0.45% NACL 1,000 ML IV SCH ×2 (09:38→17:41)
[2017-05-25 14:45] VITALS: BP 116/74; RESP 18
[2017-05-25] MEDS: LEVOFLOXACIN 750MG/D5W (PMX) 150 ML IVPB SCH (15:26)
[2017-05-25] MEDS ORDERED: NEOMYC/POLYMYX/BACIT 30 GM OINT TOP PRN (16:00)
[2017-05-25 16:59] VITALS: BP 111/72; PULSE 68; RESP 18
[2017-05-25] MEDS ORDERED: HYDROCORTISONE 1% 28.35 GM OINT TOP PRN (17:00)
--- NOTE | 2017-05-25 17:52 | OPPN ---
Date/Time of Note Date/Time of Note DATE: 05/25/17 TIME: 17:47 Proc Note GI Free Text/Dictation Preoperative Diagnosis: * Abdominal pain Postoperative Diagnosis: * Mild distal esophagitis * Proximal displacement of the lap band causing relative obstruction of the EG junction * Mild gastritis. Rule out H. pylori infection. Biopsies obtained Plan: * Omeprazole 40 mg daily * Review pathology as soon as available * Advance diet as tolerated * Strongly consider removal LAP-BAND Procedure Performed: EGD with biopsies Surgeon: Africa Saldana MD Frame Table Operator Helper: None Second Gaming Worker: None Anesthesia/Sedation: Monitored anesthesia care by anesthesiologist Tourniquet Time: NA Estimated Blood Loss: None Transfusion Required: No Specimens: Gastric body and antrum Grafts/Implants: None Tubes/Drains: NA Complications: None Pt. Condition Post Procedure: Stable Disposition: PACU After informed consent, with the patient/relatives understanding the procedure, its indications, potential risks and complications, including but not limited to : allergic reaction, bleeding, perforation or infection, and after all pertinent questions were answered to the patients satisfaction, the patient/ relatives signed witnessed informed consent. Following this, premedication was administered slowly IV push under careful cardiovascular and respiratory monitoring with pulse oximetry, automatic blood pressure, and monitor technician. Once the sedative effect was achieved the patient was place in the left lateral decubitus, the panendoscope was introduced and advanced under visual control. Careful examination of the upper gastrointestinal tract, both on insertion as well as withdrawal of the instrument disclosing the following findings: ESOPHAGUS: the mucosa of the entire esophagus was carefully examined and showed the following findings: There is mild erythema of the mucosa at the e.g. junction. There is some degree of narrowing related to the proximal migration of the LAP-BAND. Otherwise the mucosa appears within normal limits. There is no evidence of varices, neoplasm, or stricture. No Hiatal Hernia identified. STOMACH: Upon entrance to the stomach air was insufflated, the gastric johnson distended normally. The mucosa of the fundus, body and antrum of the stomach was carefully examined both head-on and on retroflexion, and showed the following findings: There is proximal migration of the LAP-BAND to the fundus of the stomach where it leads to partial obstruction. The mucosa of the body and antrum the stomach shows erythema of a mild degree. Biopsies were obtained to rule out H. pylori infection. Otherwise the mucosa appears within normal limits with no abnormalities. There is no evidence of ulcers or neoplasm. PYLORUS: The pylorus was carefully examined and showed the following findings: []the pylorus appears patent and within normal limits, with no evidence of gastric outlet obstruction. DUODENUM: The duodenal mucosa was carefully examined in the duodenal bulb as well as the second portion of the duodenum and showed the following findings: []the mucosa appears unremarkable with no evidence of duodenitis, ulcer or neoplasm. Procedure date: May 25, 2017 Surgeon: AFRICA SALDANA MD Estimated blood loss: none Transfusion Required: no Pt Condition post procedure: stable AFRICA SALDANA MD May 25, 2017 17:52
[2017-05-25] MEDS ORDERED: PANTOPRAZOLE (EC) 40 MG TAB PO ONE (18:00)
[2017-05-25 18:17] VITALS: BP 120/69; PULSE 69; RESP 18
--- NOTE | 2017-05-25 18:52 | PN ---
Date/Time of Note Date/Time of Note DATE: 05/25/17 TIME: 18:48 Assessment/Plan VTE Prophylaxis VTE Prophylaxis Intervention: ambulation Lines/Catheters IV Catheter Type (from Nrsg): Peripheral IV Assessment/Plan Assessment/Plan 1. Epigastric abdominal pain and dysphagia with possible esophageal dilation: likely related to his lap band/post deflation 2. L sided pneumonia 3. Indirect hyperbilirubinemia Rule out hemolysis Bilirubin to high for Gilbert's syndrome No evidence of intrinsic liver disease or obstruction 4. Remote hx of Lap band placement: currently managed by Dr. Jacobsen 5. Opiate seeking behavior 6. L sided Msc wall defect with probable hernia -Likely chronic with patient acting like it's acute to get pain meds?? 7. Severe anxiety d/o PLAN: Followup GI findings Pain mgt and supportive care Subjective 24 Hr Interval Summary Free Text/Dictation Going to GI lab for EGD Exam/Review of Systems Vital Signs Vitals Vital Signs Date Time Temp Pulse Resp B/P Pulse Ox O2 Delivery O2 Flow Rate FiO2 05/25/17 18:17 69 18 120/69 98 Room Air 05/25/17 16:59 98.2 Intake and Output 05/24/17 05/24/17 05/25/17 15:00 23:00 07:00 Intake Total 2181 ml 700 ml Output Total 900 ml 820 ml Balance 1281 ml -120 ml Exam Constitutional: alert, oriented Psych: anxiety Eyes: PERRL ENMT: mucosa pink and moist Respiratory: clear to auscultation, normal air movement Gastrointestinal: bowel sounds, distended (mildly), soft Extremities: No edema Neurological: nl mental status Results Result Diagram: 05/25/17 0530 05/25/17 0530 Results 24 hrs Laboratory Tests Test 05/25/17 05:30 White Blood Count 8.4 Red Blood Count 4.16 L Hemoglobin 12.3 L Hematocrit 33.6 L Mean Corpuscular Volume 80.8 L Mean Corpuscular Hemoglobin 29.6 Mean Corpuscular Hemoglobin Concent 36.6 Red Cell Distribution Width 11.9 Platelet Count 286 Mean Platelet Volume 9.3 Neutrophils % 68.2 Lymphocytes % 14.4 L Monocytes % 12.1 H Eosinophils % 4.4 Basophils % 0.4 Nucleated Red Blood Cells % 0.0 Neutrophils # (Manual) 5.7 Lymphocytes # 1.2 Monocytes # 1.0 H Eosinophils # 0.4 Basophils # 0.0 Nucleated Red Blood Cells # 0.0 Sodium Level 141 Potassium Level 3.4 L Chloride Level 100 Carbon Dioxide Level 30 Anion Gap 14 Blood Urea Nitrogen < 2 L Creatinine 0.72 Glucose Level 100 Calcium Level 9.3 Total Bilirubin 3.2 H Direct Bilirubin 0.00 Indirect Bilirubin 3.2 H Aspartate Amino Transf (AST/SGOT) 17 Alanine Aminotransferase (ALT/SGPT) 28 Alkaline Phosphatase 69 Total Protein 7.5 Albumin 4.0 Globulin 3.50 H Albumin/Globulin Ratio 1.14 Medications Medications Current Medications Dextrose/Sodium Chloride 1,000 ml @ 100 mls/hr Q10H IV Last administered on 09:38; Admin Dose 100 MLS/HR; Start 05/23/17 at 16:30 Levofloxacin/ Dextrose (Levaquin 750 Mg/ D5W 150 ml (Pmx)) 150 ml @ 100 mls/hr Q24H IVPB Last administered on 05/25/17 15:26; Admin Dose 100 MLS/HR; Start 05/24/17 at 15:00 Simethicone (Mylicon) 80 mg Q6H PRN PO DISTENSION/GAS/BLOATING Last administered on 05/24/17 22:23; Admin Dose 80 MG; Start 05/24/17 at 21:30 Hydromorphone HCl (Dilaudid) 1 mg Q4H PRN IV PAIN Last administered on 13:41; Admin Dose 1 MG; Start 05/24/17 at 23:00 Mupirocin (Bactroban) 1 applic BID TOP ; Start 05/25/17 at 21:00 Hydrocortisone (Hydrocortisone 1% Oint) 1 applic BID PRN TOP itching; Start 05/25/17 at 17:00 Procedures Procedures PROCEDURE: CT ABDOMEN AND PELVIS WITH CONTRAST: CLINICAL INDICATION: 31 years of age, male, acute abdominal pain and distension. COMPARISON: CT May 22, 2017 TECHNIQUE: CT of the abdomen and pelvis was performed following administration of 100 mL IV Omnipaque-300. Oral contrast was not administered prior to the examination. Coronal and sagittal reformatted images were obtained from the axial source images. Images were reviewed on a high-resolution PACS workstation. Dose information: Based on a 32 cm phantom, the estimated radiation dose ( CTDIvol mGy for each series in this exam is 19.8. The estimated cumulative dose (DLP mGy-cm) is 1323. One or more of the following dose reduction techniques were used: - Automated exposure control. - Adjustment of the mA and/or kV according to patient size. - Use of iterative reconstruction technique. FINDINGS: LUNG BASES: There is multi focal consolidation in the left lung lingula and left lower lobe that is improved from prior exam. Trace left pleural effusion is similar to prior exam. ABDOMEN/PELVIS: Liver: Normal. Portal veins, splenic vein and SMV are patent. Hepatic veins are patent. Gallbladder: Cholelithiasis without evidence of acute cholecystitis. Bile ducts: No intrahepatic or extrahepatic biliary duct dilatation. Spleen: Mild splenomegaly measuring 13.3 cm. Pancreas: Normal. Adrenal glands: Normal. Kidneys and ureters: Normal. Aorta and IVC: Patent. Lymph nodes: Normal. Gastrointestinal tract: There is a laparoscopoic adjustable gastric band at the gastric cardia. Phi angle of the band is normal and measures 43 degrees. Negative for evidence of slippage or gastric erosion. There is upstream dilatation of the esophagus with oral contrast concerning for stomal stenosis. It is possible that the band has been deflated since the prior exam. There is wall thickening of the distal esophagus that may be due to esophagitis. Negative for evidence of perforation. The stomach is moderately distended with contrast and debris from a recent meal. The tubing is redundant and extends inferior to the right lobe of the liver are and is connected to a pop in the anterior chest wall overlying the xiphoid. Small bowel loops and colon are decompressed. There is N I ileocolic anastomosis in the right lower quadrant. There is an enough stenosis in the distal descending colon from segmental resection. Appendix: Absent Bladder: Normal. Pelvic Organs: Prostate gland and seminal vesicles are unremarkable. Peritoneal cavity: No free fluid or free intraperitoneal air. Abdominal wall: There is complete absence or atrophy of the left rectus abdominus and transversalis and oblique musculature in the mid and lower abdomen extending to the left iliac crest. There is abdominal wall laxity. There is either an intact lax deep fascial layer or an abdominal wall hernia containing bowel lined by peritoneum in this location. In the superior abdomen there is diastasis of the rectus abdominus. A similar defect in the deep abdominal wall musculature is observed at the attachment to the right iliac crest with either laxity or a focal hernia (3/123) BONES: Musculoskeletal: There is heterotopic ossification at the left iliac crest likely from remote trauma. Mild degenerative changes in spine. No suspicious bone lesions. IMPRESSION: Status post placement of laparoscopic adjustable gastric band with a normal Phi angle without evidence of slippage. There is concern for stromal stenosis with mechanical obstruction at the site of the band with upstream dilatation of the esophagus and delayed esophageal emptying. Recommend GI consultation for deflation of the band. It is possible that the band has been deflated in the interval since the prior exam but there is continued obstruction. Recommend correlation with the medical record. Wall thickening of the distal esophagus is concerning for esophagitis. There is also wall thickening of the gastric cardia at the site of the band without CT evidence of gastric band erosion. The patient will likely benefit from endoscopy. The patient may also benefit from an upper GI study to better evaluate for gastric band erosion. Multi focal consolidation in the left lung is improved from prior exam and may be due to infection or aspiration. Trace left pleural effusion is similar . Deficiency of the abdominal wall musculature in the left mid and lower abdomen with concern for an abdominal wall hernia that may be post traumatic. There is heterotopic ossification over the left iliac crest suggesting remote trauma. A similar defect in the deep abdominal wall musculature is observed at the attachment to the right iliac crest with concern for a fat-containing hernia in this location. Cholelithiasis without evidence of acute cholecystitis. Findings were discussed with Fanny Hawkins RN by Dr. Stephanie Bello on May 24, 2017 at 05:40 p.m.. RPTAT: HCTS Physician Radha Date Time Electronically viewed and signed by Physician Radha on 05/24/2017 17: 44 CS/ CC: SREEDHAR DSOUZA BOLATITO M. May 25, 2017 18:52
[2017-05-25 20:02] VITALS: BP 112/68; RESP 18
[2017-05-25] MEDS: MUPIROCIN 2% 22 GM OINT TOP SCH (21:41)
--- NOTE | 2017-05-25 23:12 | PN ---
Date/Time of Note Date/Time of Note DATE: 05/25/17 TIME: 09:08 Assessment/Plan Lines/Catheters IV Catheter Type (from Nrsg): Peripheral IV Subjective 24 Hr Interval Summary Pending EGD today. C/o "heartburn" discomfort. No nausea, vomiting, fevers, chills, malaise, abd pain, dysuria, cp, palpitations. + flatus Exam/Review of Systems Vital Signs Vitals Vital Signs Date Time Temp Pulse Resp B/P Pulse Ox O2 Delivery O2 Flow Rate FiO2 05/25/17 20:02 98.4 79 18 112/68 95 05/25/17 18:17 Room Air Intake and Output 05/24/17 05/24/17 05/25/17 15:00 23:00 07:00 Intake Total 2181 ml 700 ml Output Total 900 ml 820 ml Balance 1281 ml -120 ml Results Result Diagram: 05/25/17 0530 05/25/17 0530 ALYSSIA MORGAN NP May 25, 2017 23:12
[2017-05-26 02:06] VITALS: BP 110/68; RESP 18
[2017-05-26] MEDS: HYDROmorphONE 1 MG/ML SYG IV PRN ×6 (02:33→22:01)
[2017-05-26] MEDS ORDERED: LOPERAMIDE 2 MG CAP PO ONE (03:00)
[2017-05-26] MEDS: DEXTROSE 5%-0.45% NACL 1,000 ML IV SCH ×4 (03:41→23:41)
[2017-05-26 07:42] VITALS: BP 109/79; RESP 18
[2017-05-26] MEDS: MUPIROCIN 2% 22 GM OINT TOP SCH ×2 (09:41→22:00)
--- NOTE | 2017-05-26 10:47 | PN ---
Date/Time of Note Date/Time of Note DATE: 05/26/17 TIME: 10:23 Assessment/Plan Lines/Catheters IV C[facility]ter Type (from [facility]): Peripheral IV Assessment/Plan Chief Complaint/Hosp Course 1. Abdominal pain: S/p EGD: Proximal displacement of the lap band causing relative obstruction of the EG junction, eosphagitis, gastritis -ppi -upper gi r/o obstruction -patient would like to do removal which can be done outpatient -advance diet if no obstruction and if patient tolerates 2. Hyperbilirubinemia, ?[place]; elevated indirect bili, LFT'S normal -as above -?heme consult 3. Ileitis, spastic colon/?colitis -per gi 4. Esophagitis, gastritis -await biopsy results -ppi -per gi 5.Hypokalemia -replete and monitor 6. Macrocytic anemia: no acute bleed noted -monitor and transfuse as needed Thank you. Patient seen and examined in collaboration with Dr.Samuel Jacobsen. Problems: Subjective 24 Hr Interval Summary S/p EGD. Feels ok. Nausea vomiting with solid diet. No current abd pain. No fevers, chills,sob, congestion, diarrhea, dysuria. +bowel function. Exam/Review of Systems Vital Signs Vitals Vital Signs Date Time Temp Pulse Resp B/P Pulse Ox O2 Delivery O2 Flow Rate FiO2 05/26/17 07:42 61 18 109/79 97 05/26/17 02:06 98.0 05/25/17 18:17 Room Air Intake and Output 05/25/17 05/25/17 05/26/17 15:00 23:00 07:00 Intake Total 300 ml 150 ml 1800 ml Balance 300 ml 150 ml 1800 ml Exam Free Text/Dictation Constitutional: alert, oriented, NAD Psych: anxiety Head: atraumatic, normocephalic, No hematomas Eyes: EOMI, PERRL, icteric, No nl conjunctiva (Icterus) ENMT: nl external ears & nose, nl lips & teeth Neck: non-tender, supple, No jvd Respiratory: normal air movement, No congested cough Cardiovascular: nl pulses, No edema Gastrointestinal: soft, tender (min), No distended, No rebound or guarding, scars, +bowel sounds Genitourinary - Male: nl penis, nl scrotum Musculoskeletal: nl extremities to inspection, nl gait and stance, No joint tenderness Extremities: normal pulses, No calf tenderness, No cyanosis Neurological: nl mental status, nl speech, nl strength, No confused Skin: nl turgor, No diaphoresis, No rash or lesions Lymph: nl lymph nodes Results Result Diagram: 05/25/17 0530 05/25/17 0530 ALYSSIA MORGAN NP May 26, 2017 10:47
--- NOTE | 2017-05-26 12:15 | PN ---
Date/Time of Note Date/Time of Note DATE: 05/26/17 TIME: 11:58 Assessment/Plan VTE Prophylaxis VTE Prophylaxis Intervention: SCD's Lines/Catheters IV Catheter Type (from Nrsg): Peripheral IV Assessment/Plan Assessment/Plan 1. Epigastric abdominal pain and dysphagia: likely related to LAP-BAND dysfunction vs other (esophagitis/gastritis) -S/p EGD: Proximal displacement of the lap band causing relative obstruction of the EG junction, esophagitis, gastritis -f/u GI and surgery recommendations -cont PPI -Patient exhibiting drug seeking behavior. Per, Pain mgt consult placed 2. s/p Sepsis: secondary to left lower lung pneumonia - Continue IV antibiotic. Per repeat abd imaging, PNA improving 3. Jaundice with hyperbilirubinemia, Indirect - trending down - f/u LDH and haptoglobin -Per GI, no need for MRCP Subjective 24 Hr Interval Summary Free Text/Dictation c/o intermittent abd pain. He also had NBNB emesis Exam/Review of Systems Vital Signs Vitals Vital Signs Date Time Temp Pulse Resp B/P Pulse Ox O2 Delivery O2 Flow Rate FiO2 05/26/17 07:42 61 18 109/79 97 05/26/17 02:06 98.0 05/25/17 18:17 Room Air Intake and Output 05/25/17 05/25/17 05/26/17 15:00 23:00 07:00 Intake Total 300 ml 150 ml 1800 ml Balance 300 ml 150 ml 1800 ml Exam Constitutional: alert, oriented, well developed Head: atraumatic, normocephalic Eyes: icteric Respiratory: clear to auscultation, normal air movement Cardiovascular: nl pulses, regular rate and rhythm Gastrointestinal: soft, tender Extremities: normal pulses Results Result Diagram: 05/25/17 0530 05/25/17 0530 Medications Medications Current Medications Dextrose/Sodium Chloride 1,000 ml @ 100 mls/hr Q10H IV Last administered on 06:34; Admin Dose 100 MLS/HR; Start 05/23/17 at 16:30 Levofloxacin/ Dextrose (Levaquin 750 Mg/ D5W 150 ml (Pmx)) 150 ml @ 100 mls/hr Q24H IVPB Last administered on 05/25/17 15:26; Admin Dose 100 MLS/HR; Start 05/24/17 at 15:00 Simethicone (Mylicon) 80 mg Q6H PRN PO DISTENSION/GAS/BLOATING Last administered on 05/26/17 02:32; Admin Dose 80 MG; Start 05/24/17 at 21:30 Hydromorphone HCl (Dilaudid) 1 mg Q4H PRN IV PAIN Last administered on 10:47; Admin Dose 1 MG; Start 05/24/17 at 23:00 Mupirocin (Bactroban) 1 applic BID TOP Last administered on 05/26/17 09:41; Admin Dose 1 APPLIC; Start 05/25/17 at 21:00 Hydrocortisone (Hydrocortisone 1% Oint) 1 applic BID PRN TOP itching Last administered on 05/25/17 19:27; Admin Dose 1 APPLIC; Start 05/25/17 at 17:00 TRENT CENTENO MD May 26, 2017 12:09
[2017-05-26] MEDS: ACYCLOVIR 200 MG CAP PO SCH ×4 (12:51→22:00)
[2017-05-26] MEDS: POTASSIUM CHLORIDE (SR) 20 MEQ TAB PO SCH (12:51)
[2017-05-26] MEDS ORDERED: DIATR MEGLU/DIATRIZOATE SODIUM 120 ML BTL ONE (14:01)
[2017-05-26 14:15] VITALS: BP 106/67; RESP 19
--- NOTE | 2017-05-26 15:31 | PN ---
Date/Time of Note Date/Time of Note DATE: 05/26/17 TIME: 15:28 Assessment/Plan VTE Prophylaxis VTE Prophylaxis Intervention: SCD's Lines/Catheters IV Catheter Type (from Nrsg): Peripheral IV Assessment/Plan Assessment/Plan Abdominal pain EGD * Mild distal esophagitis * Proximal displacement of the lap band causing relative obstruction of the EG junction * Mild gastritis. Rule out H. pylori infection. Biopsies obtained Plan: * Omeprazole 40 mg daily * Review pathology as soon as available * Advance diet as tolerated * Strongly consider removal LAP-BAND * case discussed with DR Saldana * Further orders will depend on clinical course Subjective 24 Hr Interval Summary Free Text/Dictation * Course reviewed with RN * Patient going for Xray * S/P EGD Exam/Review of Systems Vital Signs Vitals Vital Signs Date Time Temp Pulse Resp B/P Pulse Ox O2 Delivery O2 Flow Rate FiO2 05/26/17 07:42 61 18 109/79 97 05/26/17 02:06 98.0 05/25/17 18:17 Room Air Intake and Output 05/25/17 05/25/17 05/26/17 15:00 23:00 07:00 Intake Total 300 ml 150 ml 1800 ml Balance 300 ml 150 ml 1800 ml Exam Constitutional: alert Respiratory: clear to auscultation, normal air movement Cardiovascular: nl pulses, regular rate and rhythm Gastrointestinal: non-tender, soft Musculoskeletal: nl extremities to inspection, nl gait and stance Extremities: normal pulses Neurological: nl speech, nl strength Skin: nl turgor, No rash or lesions Results Result Diagram: 05/25/17 0530 05/25/17 0530 Medications Medications Current Medications Dextrose/Sodium Chloride 1,000 ml @ 100 mls/hr Q10H IV Last administered on 06:34; Admin Dose 100 MLS/HR; Start 05/23/17 at 16:30 Levofloxacin/ Dextrose (Levaquin 750 Mg/ D5W 150 ml (Pmx)) 150 ml @ 100 mls/hr Q24H IVPB Last administered on 05/25/17 15:26; Admin Dose 100 MLS/HR; Start 05/24/17 at 15:00 Simethicone (Mylicon) 80 mg Q6H PRN PO DISTENSION/GAS/BLOATING Last administered on 05/26/17 02:32; Admin Dose 80 MG; Start 05/24/17 at 21:30 Hydromorphone HCl (Dilaudid) 1 mg Q4H PRN IV PAIN Last administered on 14:24; Admin Dose 1 MG; Start 05/24/17 at 23:00 Mupirocin (Bactroban) 1 applic BID TOP Last administered on 05/26/17 09:41; Admin Dose 1 APPLIC; Start 05/25/17 at 21:00 Hydrocortisone (Hydrocortisone 1% Oint) 1 applic BID PRN TOP itching Last administered on 05/25/17 19:27; Admin Dose 1 APPLIC; Start 05/25/17 at 17:00 Potassium Chloride (Klor-Con 20) 40 meq DAILY PO Last administered on 05/26/17 12:51; Admin Dose 40 MEQ; Start 05/26/17 at 12:00 JOSE SHIN NP May 26, 2017 15:31
[2017-05-26] MEDS: LEVOFLOXACIN 750MG/D5W (PMX) 150 ML IVPB SCH (15:48)
--- NOTE | 2017-05-26 15:50 | RADRPT ---
PROCEDURE: Upper GI. CLINICAL INDICATION: Dysphagia TECHNIQUE: The patient was NPO. The patient was given 8 ounces of barium with CO2 crystals orally via a cup. Subsequently videofluoroscopy was performed was performed. Routine fluoroscopic images were obtained. Fluoroscopy time: 0.5 min One or more of the following dose reduction techniques were used: - Automated exposure control. - Adjustment of the mA and/or kV according to patient size. - Use of iterative reconstruction technique. COMPARISON: CT abdomen/pelvis from 05/24/2017 FINDINGS: Unremarkable oral phase of swallowing. Normal bolus formation and control. Normal lingular movement and propulsion. Normal bolus transfer. No spillage into pharynx. Unremarkable pharyngeal phase of swallowing. Normal swallow reflex. Normal pharyngeal contraction. N o laryngeal penetration identified. No aspiration identified. No pharyngeal residual identified. A gastric band is identified although it appears to have migrated proximally in the is around the di stal esophagus/gastroesophageal junction. Orally administered contrast is noted to pass freely passe d the band into the stomach although a significant amount of contrast is noted to hang above the ban d in the distal esophagus. This persisted on delayed images. Normal gastric position, contour, distensibility, peristalsis, emptying and mucosal pattern. No savi filippo ulcer identified. No gastric mass identified. Unremarkable duodenum. No duodenal ulcer identified. RPTAT: AA IMPRESSION: Apparent proximal migration of the gastric band which is now around the distal esophagus/gastroesoph ageal junction with a significant amount of contrast noted to hang in the distal esophagus although a majority of it passed on into the stomach. These findings were discussed with Sienna Crews over the phone on 05/26/2017 at 3:48 PM . Physician Frankie Date Time Electronically viewed and signed by Physician Frankie on 05/26/2017 15:49 /
[2017-05-26 20:00] VITALS: BP 144/77; RESP 20
[2017-05-26] MEDS ORDERED: HYDROmorphONE 1 MG/ML SYG IM STA (23:05)
[2017-05-26] MEDS ORDERED: HYDROmorphONE 1 MG/ML SYG IV ONE (23:13)
[2017-05-27] MEDS: HYDROmorphONE 1 MG/ML SYG IV PRN ×5 (00:02→12:30)
[2017-05-27 02:01] VITALS: BP 110/75; RESP 18
[2017-05-27 06:32] LABS: BASOPHIL # 0.1 10^3/ul (0.0-0.1); BASOPHILS % 0.6 % (0.0-2.0); EOSINOPHILS # 0.5 10^3/ul (0.0-0.5); EOSINOPHILS % 5.9 % (0.0-7.0); HEMATOCRIT 35.9 % (42.0-52.0); HEMOGLOBIN 12.5 g/dl (14.0-18.0); LYMPHOCYTES % 24.7 % (15.0-51.0); MEAN CORPUSCULAR HGB CONC 34.8 g/dl (32.0-37.0); MEAN CORPUSCULAR VOLUME 83.3 fl (82.0-101.0); MEAN PLATELET VOLUME 9.4 fl (7.4-10.4); MONOCYTE # 0.9 10^3/ul (0.3-0.9); MONOCYTES % 11.1 % (0.0-11.0); NEUTROPHILS % 56.2 % (39.0-77.0); PLATELET COUNT 358 10^3/UL (140-415); RED BLOOD COUNT 4.31 10^6/ul (4.70-6.10); RED CELL DISTRIBUTION WIDTH 11.9 % (11.5-14.5); WHITE BLOOD COUNT 8.2 10^3/ul (4.8-10.8)
[2017-05-27 07:30] LABS: ALBUMIN 4.2 g/dl (3.3-4.9); ALBUMIN/GLOBULIN RATIO 1.2; BILIRUBIN,INDIRECT 1.8 mg/dl (0-1.1); BILIRUBIN,TOTAL 1.8 mg/dl (0.2-1.3); CALCIUM 9.7 mg/dl (8.4-10.2); CREATININE 0.82 mg/dl (0.61-1.24); POTASSIUM 3.5 mmol/L (3.5-5.1); TOTAL PROTEIN 7.7 g/dl (6.1-8.1)
[2017-05-27 07:57] VITALS: BP 98/55; RESP 18
[2017-05-27] MEDS: POTASSIUM CHLORIDE (SR) 20 MEQ TAB PO SCH (08:27)
[2017-05-27] MEDS: MUPIROCIN 2% 22 GM OINT TOP SCH (08:35)
[2017-05-27] MEDS: ACYCLOVIR 200 MG CAP PO SCH ×2 (08:35→12:30)
[2017-05-27] MEDS: DEXTROSE 5%-0.45% NACL 1,000 ML IV SCH (09:41)
--- NOTE | 2017-05-27 10:08 | OPR ---
Date/Time of Note Date/Time of Note DATE: 05/27/17 TIME: 10:05 Operative Report Procedure Date: May 27, 2017 Preoperative Diagnosis Partially obstructing LAP-BAND Postoperative Diagnosis Same Operation Performed 1. Lap band adjustment and full emptying Surgeon: GUILHERME NGUYEN MD Bullet Maker: ALYSSIA MORGAN NP Estimated Blood Loss: none Transfusion Required: no Specimen: none Grafts/Implants: none Complications: no Pt Condition Post Procedure: stable Disposition: other (Own room) Indications Per notes Risks, alternatives, benefits as usual and customary. Patient is agreeable to full emptying at this time since he was not last time. Procedure Description Patient was placed supine on his own bed. Area was prepped. Timeout was performed. Using Hicks needle the port was accessed and the band was fully emptied. Needle was removed and Band-Aid was applied. There is no bleeding. Patient tolerated procedure well. GUILHERME NGUYEN MD May 27, 2017 10:08
--- NOTE | 2017-05-27 10:11 | PN ---
Date/Time of Note Date/Time of Note DATE: 05/27/17 TIME: 10:00 Assessment/Plan Lines/Catheters IV [facility] Type (from [facility]): Peripheral IV Assessment/Plan Chief Complaint/Hosp Course 1. Abdominal pain: S/p EGD: Proximal displacement of the lap band causing relative obstruction of the EG junction, eosphagitis, gastritis: s/p lap band adjustment: band completely emptied: patient educated on need for diet modification and need for self control with regards to diet -ppi -upper gi r/o obstruction -patient would like to do removal which can be done outpatient -patient may be discharged per medical team 2. Hyperbilirubinemia, ?[place]; elevated indirect bili, LFT'S normal: improved -as above -?heme consult 3. Ileitis, spastic colon/?colitis -per gi 4. Esophagitis, gastritis -await biopsy results -ppi -per gi 5. Macrocytic anemia: no acute bleed noted -monitor and transfuse as needed 6. Severe anxiety: -medical management 7. Obesity: s/plap band: patient educated on need for diet modification and need for self control with regards to diet -diet and exercise optimization Thank you. Patient seen and examined in collaboration with Dr.Samuel Jacobsen. Problems: Subjective 24 Hr Interval Summary S/p lap band adjustment- completely emptied. Feels well. Anxious. Able to tolerate liquids/diet without vomiting. Min nausea, "heartburn". Loose stools likely due to contrast material. No fevers, chills, sob, vomiting, cp, palpitations. Exam/Review of Systems Vital Signs Vitals Vital Signs Date Time Temp Pulse Resp B/P Pulse Ox O2 Delivery O2 Flow Rate FiO2 05/27/17 07:57 97.9 67 18 98/55 96 05/25/17 18:17 Room Air Intake and Output 05/26/17 05/26/17 05/27/17 15:00 23:00 07:00 Intake Total 2410 ml Balance 2410 ml Exam Free Text/Dictation Constitutional: alert, oriented, NAD Psych: very anxious Head: atraumatic, normocephalic, No hematomas Eyes: EOMI, PERRL, icteric, No nl conjunctiva (Icterus) ENMT: nl external ears & nose, nl lips & teeth Neck: non-tender, supple, No jvd Respiratory: normal air movement, No congested cough Cardiovascular: nl pulses, No edema Gastrointestinal: soft, tender (min), No distended, No rebound or guarding, scars, +bowel sounds Genitourinary - Male: nl penis, nl scrotum Musculoskeletal: nl extremities to inspection, nl gait and stance, No joint tenderness Extremities: normal pulses, No calf tenderness, No cyanosis Neurological: nl mental status, nl speech, nl strength, No confused Skin: nl turgor, No diaphoresis, No rash or lesions Lymph: nl lymph nodes Results Result Diagram: 05/27/17 0532 05/27/17 0532 ALYSSIA MORGAN NP May 27, 2017 10:10
[2017-05-27] MEDS ORDERED: HYDR-902 PO (13:01)
[2017-05-27] MEDS ORDERED: MYL80 PO (13:01)
[2017-05-27] MEDS ORDERED: ACYC200C2 PO (13:01)
[2017-05-27] MEDS ORDERED: CIPR500T4 PO (13:01)
[2017-05-27] MEDS ORDERED: METR500T14 PO (13:01)
[2017-05-27] MEDS ORDERED: ONDA4SOL PO (13:02)
--- NOTE | 2017-05-27 13:05 | PDOCDIS ---
Discharge Instructions CONDITION Patient Condition: Stable HOME CARE INSTRUCTIONS: Special Diet: Soft diet ACTIVITY: Activity Restrictions: Slowly Increase Activity FOLLOW UP/APPOINTMENTS Follow-up Plan follow-up with your primary care Doctor and Surgeon. . OTHER ORDERS: Other Orders: Call 911 and go to the nearest ER if you have excessive nausea/vomiting, difficulty swallowing, fever/chills, shortness of breath and if your diarrhea does not resolve . TRENT CENTENO MD May 27, 2017 13:05
[2017-05-27] MEDS ORDERED: HYDROmorphONE 1 MG/ML SYG IV STA (13:30)
== END 2017-05-27 15:15 | disposition home or self-care (01) | DRG 326 ==
LOC: E/R 13:39 → MS2 13:46
PROVIDERS: ADMIT Family Medicine; ATTEND Family Medicine
PROC: 0DW63CZ Revision of Extraluminal Device in Stomach, Percutaneous Approach (ICD-10-PCS; principal; 2017-05-23)
PROC: 0DB78ZX Excision of Stomach, Pylorus, Via Natural or Artificial Opening Endoscopic, Diagnostic (ICD-10-PCS; 2017-05-25)
PROC: 0DW63CZ Revision of Extraluminal Device in Stomach, Percutaneous Approach (ICD-10-PCS; 2017-05-27)
DX: K95.09 Other complications of gastric band procedure (principal); J18.9 Pneumonia, unspecified organism; K22.8 Other specified diseases of esophagus; E80.6 Other disorders of bilirubin metabolism; Y84.8 Other medical procedures as the cause of abnormal reaction of the patient, or of later complication, without mention of misadventure at the time of the procedure; Y92.230 Patient room in hospital as the place of occurrence of the external cause; K58.9 Irritable bowel syndrome, unspecified; R13.10 Dysphagia, unspecified; E80.4 Gilbert syndrome; K29.70 Gastritis, unspecified, without bleeding; E87.6 Hypokalemia; D64.9 Anemia, unspecified; Z76.5 Malingerer [conscious simulation]; Z72.0 Tobacco use; Z98.84 Bariatric surgery status; Z90.49 Acquired absence of other specified parts of digestive tract; Z93.3 Colostomy status
CPT/HCPCS: 74177; 74240; 80048; 80053; 80076; 83010; 83615; 83735; 85025; 86880; 86885; 86900; 86901; 87075; 88305; 88312; 96361; 96374; 96375; J1170; J1956; J2270; J7042; Q9967

== ENCOUNTER 2019-05-17 16:15 | Observation (INO) | payer OTHER ==
[~2019-05-17] VITALS: Ht 177.8 cm; Wt 104.5 kg
[~2019-05-17 16:15] MED LIST: ACYC200C2 PO; CIPR500T4 PO; CYCL10TA7 PO; HYDR-3980 PO; IBUP-1544 PO; METR-121 PO; OMEP40CA6 PO; ONDA4SOL PO; SIME80TA60 PO
[2019-05-17] MEDS ORDERED: HYDROmorphONE 1 MG/ML SYG IV STA (16:43)
[2019-05-17] MEDS ORDERED: SOD CHLORIDE 0.9% 100 ML ONE (16:49)
[2019-05-17] MEDS ORDERED: IOHEXOL 300MG/ML 150 ML BTL ONE (16:49)
[2019-05-17] MEDS: FENTAnyl 50 MCG/ML VIAL IV ONE ×2 (18:18→18:50)
[2019-05-17] MEDS ORDERED: HYDROmorphONE 2 MG/ML SYG IV STA (18:45)
[2019-05-17] MEDS ORDERED: ONDANSETRON 4 MG INJ IV STA (19:50)
[2019-05-17] MEDS ORDERED: KETAMINE HCL (50 MG/ML) 1ml syringe IV STA (19:50)
[2019-05-17] MEDS ORDERED: ONDANSETRON 4 MG INJ IV PRN ×2 (20:00→22:30)
[2019-05-17] MEDS ORDERED: ACETAMINOPHEN 325 MG TAB PO PRN ×2 (20:00→22:30)
[2019-05-17] MEDS ORDERED: morphine 4 MG/ML VIAL IV PRN (22:30)
[2019-05-17] MEDS ORDERED: KETOROLAC 30 MG INJ IV PRN (22:30)
[2019-05-17] MEDS: SOD CHLORIDE 0.9% 1,000 ML IV SCH (22:31)
[2019-05-17] MEDS ORDERED: RANITIDINE 150 MG TAB PO PRN (23:00)
[2019-05-17 23:01] VITALS: BP_SYST 124; BP_SYST 136; BP_DIAS 60; BP_DIAS 78; PULSE 74; PULSE 98; RESP 18; RESP 20
[2019-05-17] MEDS: ZOLPIDEM 5 MG TAB PO PRN (23:07)
[2019-05-17] MEDS: HYDROmorphONE 1 MG/ML SYG IV PRN (23:07)
[2019-05-18] MEDS: ZOLPIDEM 5 MG TAB PO PRN (00:29)
[2019-05-18 00:44] VITALS: Ht 177.8 cm; Wt 104.5 kg
[2019-05-18] MEDS: HYDROmorphONE 1 MG/ML SYG IV PRN ×3 (03:10→12:33)
[2019-05-18 03:12] VITALS: BP 134/74; PULSE 80; RESP 18
[2019-05-18] MEDS ORDERED: HYDROmorphONE 1 MG/ML SYG IV ONE ×3 (05:30→14:00)
[2019-05-18] MEDS: SOD CHLORIDE 0.9% 1,000 ML IV SCH ×2 (05:36→14:30)
[2019-05-18] MEDS ORDERED: PANTOPRAZOLE (EC) 40 MG TAB PO SCH (06:00)
[2019-05-18 08:15] VITALS: BP 113/77; PULSE 63; RESP 20
[2019-05-18] MEDS ORDERED: IBUPROFEN 800 MG TAB PO ONE (14:00)
[2019-05-18] MEDS ORDERED: CYCLOBENZAPRINE 10 MG TAB PO ONE (14:00)
[2019-05-18 15:39] VITALS: BP 129/64; PULSE 82; RESP 18
== END 2019-05-18 16:48 | disposition home or self-care (01) ==
LOC: E/R 16:15 → 2NE 20:00
PROVIDERS: ADMIT Internal Medicine; ATTEND Internal Medicine
DX: M54.5 Low back pain (principal)
CPT/HCPCS: 36415; 74177; 80048; 80053; 80061; 80076; 81003; 83690; 85025; 96374; 96376; G0378; J1170; J1885; J2270; J3010; J7030; Q9967